=== PATIENT | male | born 1990 | race Caucasian/White ===

== ENCOUNTER 2024-12-03 10:24 | Emergency (ER) | payer OTHER, SELFPAY ==
[2024-12-03 10:24] VITALS: BMI 31.4
[2024-12-03 10:27] VITALS: BP 135/76
[2024-12-03] MEDS: MOTRIN 600 MG PO (11:47)
--- NOTE | 2024-12-03 12:14 | ED.MUSCINJ ---
HPI-Injury
General
Chief Complaint: Musculo-Skeletal Complaint
Source: patient
Exam Limitations: none
Time Seen by Provider: 12/03/24 11:26
Nursing documentation reviewed up to this point in time: agreed with
History of Present Illness-Injury
Initial Injury comments:
34-year-old male with no significant past medical history states he twisted his right knee yeah today as he was helping a friend build a deck, he tripped, his foot caught and rolled and he fell impacting the outer aspect of his right knee and
hyperextending the medial aspect of his knee. He has been able to weight-bear but with significant pain. He took Tylenol with not much relief.
Past History
Past History
ED Past Surgical History: Appendectomy and Other (Vasectomy, hernia repair)
Review of Systems
Review of Systems
Allergies reviewed?: Yes
All Other Systems: ROS reviewed and negative except as documented in HPI and ROS
Phy Exam
Physical Exam
Physical Exam:
GENERAL: No acute distress. A&Ox3.
RESPIRATORY: Regular respirations, nonlabored, lungs clear.
CARDIOVASCULAR: Regular rate and rhythm, no murmurs, no rubs.
MUSCULOSKELETAL: Patient has limited range of motion of the knee, can flex to about 20 degrees before too painful to go further. He can straighten the knee. No significant swelling, mild discoloration of the lateral aspect of the upper lower leg
consistent with a mild contusion. He can ambulate but with comfort. Distal neurovascular intact
Moves with ease. Well perfused.
SKIN: Warm, dry, pink
PSYCH: Normal mood and affect. Well kept, interactive and appropriate
NEUROLOGIC: Awake, alert and oriented. No focal neurological deficits
Injury Course
Orders/Labs/Results
Orders:
Orders
12/03/24 11:35
Knee Immobilizer Right-Treatme ONCE
Ibuprofen [Motrin] 600 mg PO NOW STA
Knee, Right 4 or More Views [CR Knee- Right 4 Or More View*] Urgent
Comment:
Reason For Exam: pain after fall
MDM/Problems Addressed
Differential Diagnosis Includes:
Fracture versus sprain, medial collateral ligament sprain, contusion
MDM/Problems Addressed:
34-year-old male with no significant past medical history states he twisted his right knee yeah today as he was helping a friend build a deck, he tripped, his foot caught and rolled and he fell impacting the outer aspect of his right knee and
hyperextending the medial aspect of his knee. He has been able to weight-bear but with significant pain. He took Tylenol with not much relief.
X-ray of knee initially read by this examiner, no acute osseous abnormality small suprapatellar effusion
Knee immobilizer applied and patient able to ambulate independently
Will treat as soft tissue injury with rest, ice, elevation and referred to orthopedics
*Pulse Oximetry
SaO2: 99
Oxygen Mode of Delivery: Room air
Patient hypoxic: not evaluated
*Critical Care Note
Total Time (30-74mins, 75-104mins- exclusive of procedures): Not Applicable
ED Attending Note
-
Portions of this chart may have been created with voice recognition software.� Occasional wrong word or��sound alike� substitutions may have occurred due to the inherent limitations of voice recognition software.
Discharge Plan
Departure
Patient Disposition: Home (Routine Discharge)
Date of Disposition: 12/03/24
Time of Disposition: 12:18
Patient with high blood pressure during this ER visit?: No
Condition: Good
Discharge Problem:
Soft tissue injury of right knee, Fall from slip, trip, or stumble
Referrals:
Gareth Medina MD [Active, Orthopedics] - Next open appointment
UNKNOWN - PT DOES,NOT KNOW [Family Provider]
Activity Restrictions/Additional Instructions:
As we discussed, rest at the knee, cool compresses 20 minutes off-and-on throughout the day the rest of today.
Wear the knee immobilizer at all times when up and around until further instructed by the orthopedic doctor.
Call your orthopedic doctors office tomorrow and make next available appointment.
Ibuprofen 600 mg, with food, every 6 hours as needed for pain.
Interventions
Interventions:
*Risk Screen - Suicide Last Done: 12/03/24 10:28
*General Assessment Last Done: 12/03/24 11:05
*Neglect/Abuse Screening Last Done: 12/03/24 10:28
*ED- Fall Risk Assessment Last Done: 12/03/24 11:05
*Nursing Disposition Last Done: 12/03/24 12:20
ED-Musculoskeletal Assessment Last Done: 12/03/24 11:05
Discharge Date and Time
Discharge Date/Time: 12/03/24 12:20
Print Language: BELGIAN
[2024-12-03 12:20] VITALS: BP 123/74
== END 2024-12-03 12:20 | disposition home or self-care (01) ==
LOC: EMR 10:24
PROVIDERS: EMERGENCY PHYSICIAN Student in an Organized Health Care Education/Training Program
DX: S89.91XA Unspecified injury of right lower leg, initial encounter (principal); X50.1XXA Overexertion from prolonged static or awkward postures, initial encounter; W01.0XXA Fall on same level from slipping, tripping and stumbling without subsequent striking against object, initial encounter
CPT/HCPCS: 29505; 99283; 73564